=== PATIENT | male | born 1975 | race Caucasian/White ===

== ENCOUNTER 2022-11-12 12:53 | Outpatient (CLI) | payer BC | END 2022-11-12 12:54 | disposition home or self-care (01) | LOC: RAD 12:53 | PROVIDERS: ATTEND Family Medicine | DX: Q67.8 Other congenital deformities of chest (principal) | CPT/HCPCS: 71046 ==

== ENCOUNTER 2023-04-11 09:14 | Outpatient (CLI) | payer BC | END 2023-04-11 09:15 | disposition home or self-care (01) | LOC: BICULT 09:14 | PROVIDERS: ATTEND Internal Medicine Gastroenterology | DX: R10.11 Right upper quadrant pain (principal); Z80.0 Family history of malignant neoplasm of digestive organs | CPT/HCPCS: 76705 ==